=== PATIENT | female | born 1995 | race Two or more races ===

== ENCOUNTER 2021-02-21 16:34 | Emergency (ER) | payer OTHER ==
[~2021-02-21] VITALS: Ht 162.6 cm; Wt 59.0 kg
[2021-02-21 16:38] VITALS: BP 117/81
[2021-02-21] MEDS ORDERED: OXYC-128 PO (17:27)
== END 2021-02-21 17:47 | disposition home or self-care (01) ==
LOC: ER 16:39
DX: S62.354A Nondisplaced fracture of shaft of fourth metacarpal bone, right hand, initial encounter for closed fracture (principal); W22.8XXA Striking against or struck by other objects, initial encounter; Y93.89 Activity, other specified; Y92.89 Other specified places as the place of occurrence of the external cause; Y99.0 Civilian activity done for income or pay
CPT/HCPCS: 73110; 73120-TC; 73130-TC